=== PATIENT | female | born 1990 | race Caucasian/White ===

== ENCOUNTER 2017-10-12 12:27 | Emergency (ER) | payer BC ==
[2017-10-12 12:56] VITALS: BMI 29.8
--- NOTE | 2017-10-12 13:32 | OBHP ---
Datetime: 10/12/2017 13:00 IP Adm Impression: Term, intrauterine ; No Active Labor; Intact Membranes IP Admit Plan: Observation/Evaluation Admit Comment, IP Provider: 26yo IUP at 38w c/o ctx since seeing Dr Culp at 11am. No VB. +FM. No SROM PNC: Dr Culp/last seen today PMH: Denies PSH: denies NKA POBGYNH: G1; No STD A: IUP at 38w early labor PLAN: will observe in [facility] for progress Abdomen - PN: Normal Back - PN: Normal Heart - PN: Normal Thyroid - PN: Normal HEENT - PN: Normal General - PN: Normal Presentation-Admit: Vertex FHR - Baseline A Provider: 140 Membranes, Provider: Intact Contraction Comments Provider: occ Pool Provider: Negative IP Hx Assessment: The History has been Reviewed and is Current IP Chief Complaint: Uterine contractions NICHD Variability Prov Fetus A: Moderate 6-25bpm NICHD Accel Fetus A IP Provider: 15X15 FHR Category Provider Fetus A: Category I NICHD Decel Fetus A IP Provider: None Dilatation, Provider: 1 Effacement, Provider: long Station, Provider:
--- NOTE | 2017-10-12 14:52 | OBDCSUM ---
Datetime: 10/12/2017 14:41 Discharged to, Provider: Home Follow up at, Provider: DR Jesus Pedroza Instr Activity: Normal activity Disch Instr Diet: Regular Discharge Diagnosis, Provider: False Labor - Undelivered Discharge Time: 10/12/2017 14:42 Follow up in weeks, Provider: as per appt Discharge Comment, Provider: Re-checked and no cervical change - labor instructoins given. Datetime: 10/12/2017 14:38 Discharged to, Provider: Home Follow up at, Provider: Dr.Fernandez Pedroza Instr Activity: Normal activity Disch Instr Diet: Regular Discharge Time: 10/12/2017 01:00 Follow up in weeks, Provider: as scheduled October 19 Disch Referrals: None
[2017-10-12 20:35] VITALS: BP 107/58; PULSE 96; RESP 16; TEMP 97.7; O2SAT 98
== END 2017-10-12 14:52 | disposition home or self-care (01) ==
LOC: H.EROB2 12:27
DX: O26.93 Pregnancy related conditions, unspecified, third trimester (principal); R10.2 Pelvic and perineal pain; Z3A.38 38 weeks gestation of pregnancy

== ENCOUNTER 2017-10-19 19:38 | Inpatient (IN) | payer BC ==
[2017-10-19] MEDS ORDERED: Lactated Ringer's 1,000 ML IV ONE (20:41)
[2017-10-19 22:37] LABS: BASO % 0.5 % (0.0-2.0); EOS # 0.1 K/uL (0.0-0.7); EOS % 0.8 % (0.0-4.0); HEMOGLOBIN 12.1 g/dL (12.0-16.0); LYMPH # 1.6 K/uL (1.0-4.3); LYMPH % 18.8 % (20.0-40.0); MEAN CELL VOLUME 87.6 fl (81.0-99.0); MEAN CORPUSCULAR HEMOGLOBIN 29.3 pg (27.0-31.0); MEAN CORPUSCULAR HGB CONC 33.5 g/dL (33.0-37.0); MEAN PLATELET VOLUME 9.1 fl (7.2-11.7); MONO # 0.5 K/uL (0.0-0.8); MONO % 5.2 % (0.0-10.0); NEUT # 6.4 K/uL (1.8-7.0); NEUT % 74.7 % (50.0-75.0); NRBC % 0.1 % (0.0-0.0); RBC 4.14 Mil/uL (3.80-5.20); WHITE BLOOD COUNT 8.6 K/uL (4.8-10.8)
--- NOTE | 2017-10-20 06:01 | OBADHP ---
Datetime: 10/19/2017 20:25 IP Chief Complaint Other: Oligohydramnios on U/S today Admit Comment, IP Provider: Pt is a 26 yo 39.5wk EPIFANIO 10/21/17 based on LMP of 01/14/17 and U/S do ne 03/12/17 she was sent here from the [facility] where she is seen by Dr. Lee due to Navin gohydramnios on U/S. States she feels sporadic contratctions throughout the day. Denies vaginal bleed ing or LOF. States good movments. 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 PGY-1 Pt seen and case discussed with Dr. Kelly OB Hospitalist on-call With PGY1, I saw and examined this pt agree with note MAHNDO Cervidil plac ed 22:45pm Extremities - PN: Normal Abdomen - PN: Normal Lungs - PN: Normal Heart - PN: Normal HEENT - PN: Normal General - PN: Normal Presentation-Admit: Vertex Membranes, Provider: Intact Comments, ACOG Physical Exam: -Pt has a bag with her for ptyalism - mild B/L LE Edema Pool Provider: Negative IP Hx Assessment: The History has been Reviewed and is Current IP Chief Complaint: Other FHR Category Provider Fetus A: Category I NICHD Decel Fetus A IP Provider: None Dilatation, Provider: 0 EGA AdmitDate IP: 39.5 IP Adm Impression: Term, intrauterine ; No Active Labor; Intact Membranes IP Admit Plan: Admit to unit; Initiate labor induction protocol Datetime: 10/12/2017 13:00 Back - PN: Normal Thyroid - PN: Normal FHR - Baseline A Provider: 140 Contraction Comments Provider: occ NICHD Variability Prov Fetus A: Moderate 6-25bpm NICHD Accel Fetus A IP Provider: 15X15 Effacement, Provider: long Station, Provider:
[2017-10-20] MEDS: Lactated Ringer's 1,000 ML IV SCH ×3 (10:17→16:43)
[2017-10-20] MEDS ORDERED: Fentanyl/Bupivacaine HCl 250 ML EPI ONE (10:52)
[2017-10-20] MEDS ORDERED: Oxytocin 30 units/LR 500ML 30 U/500 ML BAG IV ONE ×2 (16:53→17:33)
[2017-10-20] MEDS ORDERED: OXYTOCIN/0.9 % NS 20 UNIT/1,000 ML BAG IV SCH (17:00)
[2017-10-21] MEDS ORDERED: Benzocaine/Menthol SPRAY TOP PRN (03:25)
[2017-10-21] MEDS ORDERED: Oxycodone/Acetaminophen 5/325 mg Tab PO PRN ×2 (03:25→05:07)
--- NOTE | 2017-10-21 03:39 | OBDS ---
[facility] [employer]ERSONNEL Delivery Doctor: Pavel Lee MD Gas Manager: Lalitha Montero RN Anesthesiologist: Jose Mcghee MD Resident: Robin MATERNAL INFORMATION Delivery Anesthesia: Local; Epidural Medications in Delivery: Pitocin Estimated Blood Loss (ml): QBL 200 Placenta Cultured: No Maternal Complications: Prolonged Second Stage > 2 Hrs Provider Comments: Delivered live baby boy at 2:52 AM the baby was bulb suctioned on the perineum an d transferred to the maternal chest. Cord was clamped and cut 3 vessels noted cord blood was obtained and sent to lab. The placenta was delivered at 2:55 AM intact, the quantified blood loss was 200 mL. There was a first-degree laceration which was repaired with 2-0 repeat. The mother tolerated the pro cedure well the baby went to the well-baby nursery with Apgars of 9 and 9 weighing 3665 g LABOR SUMMARY EDC: 10/21/2017 00:00 No. Babies in Womb: 1 Attempted: No Labor Anesthesia: None LABOR INFORMATION Reason for Induction: Oligohydramnios Onset of Labor: 10/20/2017 17:30 Complete Dilatation: 10/21/2017 22:12 Cervical Ripening Agents: Cervidil (Annotations: Cervidil inserted by Dr. Kelly) Oxytocin: Augmentation Group B Beta Strep: Negative Steroids Given: None Reason Steroids Not Administered: Not Applicable MEMBRANES Membranes Rupture Method: Artificial Rupture of Membranes: 10/20/2017 17:30 Length of Rupture (hrs): 9.37 Amniotic Fluid Color: Clear Amniotic Fluid Amount: Scant STAGES OF LABOR Stage 1 hrs: 28 Stage 1 min: 42 Stage 2 hrs: -19 Stage 2 min: -20 Stage 3 hrs: 0 Stage 3 min: 3 Total Time in Labor hrs: 9 Total Time in Labor min: 25 VAGINAL DELIVERY Episiotomy: None Laceration Extension: First Degree Laceration Type: Vaginal Laceration Repair: Yes Initial Vag Sponge Count: 15 Final Vag Sponge Count: 15 Initial Vag Sharps Count: 3 Final Vag Sharps Count: 3 Sponge Count Correct: No Sharps Count Correct: Yes Count Comment: coutn correct BABY A INFORMATION Delivery Date/Time: 10/21/2017 02:52 Method of Delivery: Vaginal Born in Route : No : N/A Forceps: N/A Vacuum Extraction: N/A Shoulder Dystocia : No SHOULDER DYSTOCIA BABY A Delivery Date/Time: 10/21/2017 02:52 PRESENTATION/POSITION BABY A Presentation: Cephalic PLACENTA INFORMATION BABY A Placenta Delivery Time : 10/21/2017 02:55 Placenta Method of Delivery: Spontaneous Placenta Status: Delivered SCORES BABY A Heart Rate 1 min: >100 bpm Resp Effort 1 min: Good Cry Reflex Irritability 1 min: Cough or Sneeze or Pulls Away Muscle Tone 1 min: Active Motion Color 1 min: Body [place], Extremities Blue Resuscitation Effort 1 min: Tactile Stimulation SCORE 1 MIN: 9 Heart Rate 5 min: >100 bpm Resp Effort 5 min: Good Cry Reflex Irritability 5 min: Cough or Sneeze or Pulls Away Muscle Tone 5 min: Active Motion Color 5 min: Body [place], Extremities Blue Resuscitation Effort 5 min: N/A SCORE 5 MIN: 9 INFANT INFORMATION BABY A Gestational Age at Delivery: 40.0 Gestational Status: Term Outcome : Liveborn Condition : Stable Infant Sex: Male IDENTIFICATION/MEDS BABY A ID Band Number: [id number] ID Band Location: Left Leg; Left Arm WEIGHT/LENGTH BABY A Birthweight (gms): 3665 Weight (lb): 8 Weight (oz): 1 CORD INFORMATION BABY A No. Cord Vessels: 3 Nuchal Cord : N/A Cord Blood Taken: Yes Infant Suction: None
[2017-10-21] MEDS: Benzocaine/Menthol SPRAY TOP PRN (05:23)
--- NOTE | 2017-10-21 11:30 | OBPPN ---
Datetime: 10/21/2017 11:26 PP Pain Prov: Within normal limits PP Nausea Prov: Denies PP Flatus Prov: Yes PP BM Prov: No PP Breasts Prov: Normal PP Heart Prov: Normal PP Lungs Prov: Normal PP Abdomen/Uterus Prov: Normal PP Lochia Prov: Normal PP Vulva/Perineum Prov: Normal PP CVA Tenderness Prov: Normal PP Extremities Prov: Normal PP C/S Incision Prov: Not Applicable PP Progress Prov: Normal PP Comments Phys Exam Prov: Abdomen soft, nontender, nondistended Uterus firm, below umbilicus No deep Tenderness bilaterally. PP Progress Note Prov: day 1 status post , patient recovering well Postoperative CBC Regular diet Pain control Patient out of bed and ambulating Vital Signs Provider PP: Reviewed; Within Normal Limits
[2017-10-21 13:28] LABS: BASO % 0.2 % (0.0-2.0); EOS # 0.1 K/uL (0.0-0.7); EOS % 0.8 % (0.0-4.0); HEMOGLOBIN 9.8 g/dL (12.0-16.0); LYMPH # 1.8 K/uL (1.0-4.3); LYMPH % 10.4 % (20.0-40.0); MEAN CELL VOLUME 87.3 fl (81.0-99.0); MEAN CORPUSCULAR HEMOGLOBIN 28.7 pg (27.0-31.0); MEAN CORPUSCULAR HGB CONC 32.9 g/dL (33.0-37.0); MEAN PLATELET VOLUME 8.8 fl (7.2-11.7); MONO # 1.1 K/uL (0.0-0.8); MONO % 6.6 % (0.0-10.0); NEUT # 14.1 K/uL (1.8-7.0); RBC 3.42 Mil/uL (3.80-5.20); RED CELL DISTRIBUTION WIDTH 20.2 % (11.5-14.5)
[2017-10-21 13:31] LABS: WHITE BLOOD COUNT 17.2 K/uL (4.8-10.8)
[2017-10-22] MEDS: Benzocaine/Menthol SPRAY TOP PRN (09:16)
--- NOTE | 2017-10-22 12:40 | OBPPN ---
Datetime: 10/22/2017 12:37 PP Pain Prov: Within normal limits PP Nausea Prov: Denies PP Flatus Prov: Yes PP BM Prov: No PP Breasts Prov: Normal PP Heart Prov: Normal PP Lungs Prov: Normal PP Abdomen/Uterus Prov: Normal PP Lochia Prov: Normal PP Vulva/Perineum Prov: Normal PP CVA Tenderness Prov: Normal PP Extremities Prov: Normal PP C/S Incision Prov: Normal PP Progress Prov: Normal PP Impression Prov: Normal progression PP Plan Prov: Continue present management PP Progress Note Prov: She feels fine today. Ambulating and tolerating diet H/H 12/18 A; S/P C-seciton day 1 Anemia - asymptomatic PLAN: cont postop care Vital Signs Provider PP: Reviewed; Within Normal Limits
--- NOTE | 2017-10-23 11:43 | OBPPN ---
Datetime: 10/23/2017 11:40 PP Pain Prov: Within normal limits PP Nausea Prov: Denies PP Flatus Prov: Yes PP Breasts Prov: Normal PP Heart Prov: Normal PP Lungs Prov: Normal PP Abdomen/Uterus Prov: Normal PP Lochia Prov: Normal PP Vulva/Perineum Prov: Normal PP CVA Tenderness Prov: Normal PP Extremities Prov: Normal PP Comments Phys Exam Prov: Abd: Soft, NT, BS- present UT - Frim PP Impression Prov: Normal progression PP Plan Prov: Discharge PP Progress Note Prov: s/p , PPD #2 Clinically [place]. Plan: D/C home F/U with OB Office. Vital Signs Provider PP: Reviewed
--- NOTE | 2017-10-23 11:45 | OBDCSUM ---
Datetime: 10/23/2017 11:39 Discharged to, Provider: Home Follow up at, Provider: Francesca Disch Instr Activity: Normal activity; May be up to bathroom; May be up for meals; May Shower Disch Instr Diet: Regular Discharge Instructions, Provider: Routine instructions given Discharge Diagnosis, Provider: Term Delivered Discharge Time: 10/23/2017 12:00 Follow up in weeks, Provider: 5 to 6 weeks Disch Referrals: None Contraception discussed, Prov: Yes Disch Activity Restrictions: No lifting; No sexual activity; Nothing in vagina - [place], tampon s, douche Discharge Comment, Provider: S/P Uncomplicated , Clinically stable Discharge Diagnosis Prov Other: S/P Uncomplicated , Clinically stable Datetime: 10/12/2017 14:41 Disch Instr Activity: Normal activity; May be up to bathroom; May be up for meals; May Shower
[2017-10-23 20:18] VITALS: BP 122/71; PULSE 82; RESP 20; TEMP 98.2; O2SAT 99
== END 2017-10-23 14:30 | disposition home or self-care (01) | DRG 775 ==
LOC: H.EROB2 19:38 → H.L&D 20:41 → H.OB/GYN 10-21 05:05
PROVIDERS: ADMIT Obstetrics & Gynecology; ATTEND Obstetrics & Gynecology
PROC: 4A1HXCZ Monitoring of Products of Conception, Cardiac Rate, External Approach (ICD-10-PCS; 2017-10-19)
PROC: 10E0XZZ Delivery of Products of Conception, External Approach (ICD-10-PCS; principal; 2017-10-21)
PROC: 0HQ9XZZ Repair Perineum Skin, External Approach (ICD-10-PCS; 2017-10-21)
DX: O63.1 Prolonged second stage (of labor) (principal); Z37.0 Single live birth; O99.02 Anemia complicating childbirth; O70.0 First degree perineal laceration during delivery; O41.00X0 Oligohydramnios, unspecified trimester, not applicable or unspecified; Z3A.40 40 weeks gestation of pregnancy